=== PATIENT | female | born 1995 | race Caucasian/White ===

== ENCOUNTER 2022-12-21 11:09 | Emergency (ER) | payer BC ==
[~2022-12-21] VITALS: Ht 154.9 cm; Wt 69.5 kg
[2022-12-21 11:19] VITALS: BP 113/72; PULSE 110; RESP 20; TEMP 102; O2SAT 99
[2022-12-21] MEDS ORDERED: ONDANSETRON 4 MG ODT PO ONE (11:30)
[2022-12-21] MEDS ORDERED: ACETAMINOPHEN EXTRA STRENGTH 500 MG TAB PO ONE (11:30)
[2022-12-21] MEDS ORDERED: KETOROLAC 30 MG/ML VIAL IM ONE (11:30)
[2022-12-21 11:56] LABS: BASOPHILS % (AUTO) 0.2 % (0.0-2.0); HEMATOCRIT 38.1 % (36-48); HEMOGLOBIN 12.9 g/dL (12.0-16.0); LYMPHOCYTES # (AUTO) 0.9 K/uL (2.5-16.5); LYMPHOCYTES % (AUTO) 7.9 % (20.5-51.1); MEAN CORPUSCULAR HEMOGLOBIN 30 pg (27-31); MEAN CORPUSCULAR HGB CONC 34 g/dL (33-37); MEAN CORPUSCULAR VOLUME 87.6 fL (80-94); MONOCYTES # (AUTO) 0.8 K/uL (0.8-1.0); MONOCYTES % (AUTO) 6.8 % (1.7-9.3); NEUTROPHILS # (AUTO) 9.8 K/uL (1.8-7.7); NEUTROPHILS % (AUTO) 85.1 % (42.2-75.2); PLATELET COUNT (AUTO) 260 K/uL (140-450); RED BLOOD CELL COUNT(AUTO) 4.35 MIL/uL (4.20-5.40); RED CELL DISTRIBUTION WIDTH 12.8 % (11.6-13.7); WHITE BLOOD COUNT (AUTO) 11.5 K/uL (4.8-10.8)
[2022-12-21 12:21] LABS: APPEARANCE,URINE CLEAR (CLEAR); BILIRUBIN,URINE NEGATIVE (NEGATIVE); BLOOD, URINE 3+ (NEGATIVE); COLOR,URINE YELLOW (YELLOW); LEUKOCYTE ESTERASE ,URINE 1+ (NEGATIVE); NITRITE, URINE NEGATIVE (NEGATIVE); PROTEIN,URINE NEGATIVE (NEGATIVE); UGLUCOSE NEGATIVE (NEGATIVE); UROBILINOGEN,URINE 0.2 EU/dL (0.2 - 1)
[2022-12-21 12:42] LABS: FLU A ANTIGEN negative (NEGATIVE); FLU B ANTIGEN NEGATIVE (NEGATIVE)
[2022-12-21 12:49] LABS: ALBUMIN 3.3 g/dL (3.4-5.0); CARBON DIOXIDE 21.7 mmol/L (21-32); CREATININE 0.8 mg/dL (0.6-1.3); TOTAL BILIRUBIN 0.3 mg/dL (0.0-1.0); TOTAL PROTEIN, SERUM 7.2 g/dL (6.4-8.2)
[2022-12-21 12:53] LABS: POTASSIUM 2.7 mmol/L (3.5-5.1)
[2022-12-21] MEDS ORDERED: MORPHINE SULFATE 2 MG/ML SYR IVP STA (12:54)
[2022-12-21] MEDS ORDERED: NACL 0.9% 1,000 ML IV ONE (12:55)
[2022-12-21 13:30] LABS: BACTERIA,URINE FEW /HPF (None Seen); SQUAMOUS EPITHELIAL CELL,UR 4-10 (MOD) /LPF (0-3 (FEW))
[2022-12-21 13:31] LABS: MUCUS,URINE None Seen /LPF (None Seen); TRICHOMONAS,URINE None Seen /HPF (None Seen); WHITE BLOOD CELL CASTS,URINE None Seen /LPF (None Seen); YEAST,URINE None Seen /HPF (None Seen)
[2022-12-21] MEDS ORDERED: KCL 20 MEQ IN 100 mL PREMIX 100 ML IV ONE (13:50)
[2022-12-21] MEDS ORDERED: POTASSIUM CHLORIDE 10 MEQ TABER PO ONE (13:50)
[2022-12-21 14:00] LABS: LACTIC ACID 2.2 mmol/L (0.4-2.0)
[2022-12-21] MEDS ORDERED: ACET-10509 PO (14:45)
[2022-12-21] MEDS ORDERED: CIPR500T4 PO (14:45)
[2022-12-21] MEDS ORDERED: BISM262C53 PO (14:45)
[2022-12-21 17:58] VITALS: BP 102/60; PULSE 64; RESP 14; O2SAT 99
[2022-12-24 06:08] LABS: HEPATITIS A ANTIBODY IGM Negative (Negative); HEPATITIS B CORE AB TOTAL Negative (Negative); HEPATITIS B CORE, IGM Negative (Negative); HEPATITIS B SURFACE ANTIBODY Non Reactive (.); HEPATITIS B SURFACE ANTIGEN Negative (Negative); HEPATITIS C VIRUS ANTIBODY Non Reactive (Non Reactive)
== END 2022-12-21 18:38 | disposition home or self-care (01) ==
LOC: MED 11:09
DX: K52.89 Other specified noninfective gastroenteritis and colitis (principal); Z20.822 Contact with and (suspected) exposure to COVID-19; E87.6 Hypokalemia; E86.0 Dehydration; Z79.899 Other long term (current) drug therapy
CPT/HCPCS: 36415; 74176; 80053; 81001; 81025; 83605; 83690; 85025; 86704; 86706; 86708; 86709; 86803; 87040; 87086; 87340; 87426; 87491; 87804; 96361; 96365; 96366; 96372; 96375; 99291; J1885; J2270; J3480; J7030; Q0162